=== PATIENT | female | born 1965 | race Caucasian/White ===

== ENCOUNTER 2016-10-24 18:41 | Emergency (ER) | payer MEDICAID ==
[2016-10-24 19:11] VITALS: TEMP 97.9
[2016-10-24] MEDS ORDERED: Lidocaine 5% Patch TD STA (20:28)
[2016-10-24] MEDS ORDERED: Oxycodone/Acetaminophen 5/325 mg Tab PO STA (20:28)
[2016-10-24] MEDS ORDERED: Oxycodone/Acetaminophen 5/325 mg Tab ONE (20:44)
[2016-10-24] MEDS ORDERED: Lidocaine 5% Patch TD ONE (20:45)
--- NOTE | 2016-10-24 21:23 | C.PDOC ---
History Of Present Illness 51 year old female with a history of lower back pain and surgery, presents to the ED with complaints of severe lower back pain since this morning. Patient states the pain is throbbing and radiating down her right buttock and posterior right leg. Denies recent injury, fever, incontinence, or any other complaints at this time. Time Seen by Provider: 10/24/16 19:22 Chief Complaint (Nursing): Back Pain History Per: Patient History/Exam Limitations: no limitations Onset/Duration Of Symptoms: Hrs Current Symptoms Are (Timing): Still Present Quality Of Discomfort: "Pain" Severity: Mild Previous Symptoms: Back Pain Associated Symptoms: None Past Medical History Reviewed: Historical Data, Nursing Documentation, Vital Signs Vital Signs: Last Vital Signs Temp 97.9 F 10/24/16 19:09 Pulse 75 10/24/16 21:49 Resp 16 10/24/16 21:49 BP 121/75 10/24/16 21:49 Pulse Ox 98 10/24/16 21:49 - Medical History PMH: Back Problems, Depression, Fractures Family History: States: Unknown Family Hx - Social History Hx Tobacco Use: No Hx Alcohol Use: No Hx Substance Use: No - Immunization History Hx Tetanus Toxoid Vaccination: No Hx Influenza Vaccination: No Hx Pneumococcal Vaccination: No Review Of Systems Except As Marked, All Systems Reviewed And Found Negative. Constitutional: Negative for: Fever Gastrointestinal: Negative for: Abdominal Pain Genitourinary: Negative for: Incontinence Musculoskeletal: Positive for: Back Pain. Negative for: Neck Pain Neurological: Negative for: Weakness, Numbness Physical Exam - Physical Exam Appears: Non-toxic, Other (+Uncomfortable) Skin: Normal Color, Warm, Dry Head: Atraumatic, Normacephalic Eye(s): bilateral: Normal Inspection Oral Mucosa: Moist Neck: Supple Chest: Symmetrical Respiratory: No Accessory Muscle Use Back: No Vertebral Tenderness, Straight Leg Raising (+ Right SLR at 45 degrees) Extremity: Normal ROM, No Deformity Neurological/Psych: Oriented x3, Normal Speech, Normal Cognition ED Course And Treatment O2 Sat by Pulse Oximetry: 100 (Room air) Pulse Ox Interpretation: Normal Progress Note: Patient treated with Lidoderm, Percocet, Toradol, and Valium. On re-exam she feels better, no neuro deficit, she is ambulatory in ED. Patient was d/c home with instriuctions to f/u with PMD. Disposition - Disposition Referrals: Linda Varma MD [Staff Provider] - Disposition: HOME/ ROUTINE Disposition Time: 21:35 Condition: IMPROVED Additional Instructions: Follow up with your PMD within 1-2 days. Return to ED if feel worse. Prescriptions: Lidocaine 5% [Lidoderm] 1 patch TP DAILY #30 patch Ibuprofen [Motrin Tab] 600 mg PO Q8 #30 tab oxyCODONE/Acetaminophen [Percocet 5/325 mg Tab] 1 tab PO QID PRN #20 tab PRN Reason: Pain diaZEpam [Valium] 2 mg PO TID #15 tab Instructions: Lumbar Radiculopathy (ED) Print Language: [place] - Clinical Impression Clinical Impression: Lumbar radiculopathy - PA / [employer] / Resident Statement MD/DO has reviewed & agrees with the documentation as recorded. - Scribe Statement The provider has reviewed the documentation as recorded by the Scribe Julia Abernathy. All medical record entries made by the Scribe were at my direction and personally dictated by me. I have reviewed the chart and agree that the record accurately reflects my personal performance of the history, physical exam, medical decision making, and the department course for this patient. I have also personally directed, reviewed, and agree with the discharge instructions and disposition.
[2016-10-24 21:50] VITALS: BP 121/75; PULSE 75; RESP 16
[2016-10-24 22:24] VITALS: O2SAT 100
== END 2016-10-24 21:49 | disposition home or self-care (01) ==
LOC: C.ER 18:41
DX: M54.16 Radiculopathy, lumbar region (principal)
CPT/HCPCS: 96372; 99283; J1885